=== PATIENT | male | born 1960 | race Caucasian/White ===

== ENCOUNTER 2018-05-29 18:20 | Emergency (ER) | payer OTHER ==
[~2018-05-29] VITALS: Ht 170.2 cm; Wt 68.0 kg
[2018-05-29 18:21] VITALS: Ht 170.2 cm; Wt 68.0 kg
[2018-05-29 19:41] VITALS: BP 128/86
== END 2018-05-29 19:41 | disposition home or self-care (01) ==
LOC: ED 18:20
DX: S20.211A Contusion of right front wall of thorax, initial encounter (principal); I10 Essential (primary) hypertension; Z88.0 Allergy status to penicillin; W18.39XA Other fall on same level, initial encounter; Y93.89 Activity, other specified; Y92.89 Other specified places as the place of occurrence of the external cause; Y99.8 Other external cause status